=== PATIENT | female | born 1975 | race Caucasian/White ===

== ENCOUNTER 2017-01-27 08:41 | Day surgery (SDC) | payer BC ==
[~2017-01-27 08:41] MED LIST: CITALOPRAM HYDR40 MG PO; DICYCLOMINE HCL20 MG PO; FLONASE 50 MCG16 GM; HYDROCHLOROTH12.5 M1 PO; IBUPROFEN800 MG PO; OMEPRAZOLE20 MG PO
--- NOTE | 2017-01-27 10:27 | Operative Note ---
Colonoscopy ([facility]) Procedure date: 01/27/17 Date of : 71 Procedure:Colonoscopy Colonoscopy with cold snare polypectomy Indications: Mrs. Brambila is a 41-year-old female with indigestion and burning chest discomfort. She has some dysphagia. She reports epigastric soreness, nausea, regurgitation and reflux. She has some early satiety. She also has chronic constipation. She has had to take 3-4 laxatives daily. She is taking Linzess which has helped. She did not achieve relief with MiraLAX or Metamucil. The patient reports no rectal bleeding or melena. She has had no weight loss. She reports no family history of gastric or colon cancer. She did have a colonoscopy in [address] Brijesh Saxena and was found to have a polyp at the hepatic flexure. The patient is on omeprazole 20 mg daily. She is here for diagnostic panendoscopy. Performing Provider: Michael Jolly MD Referrring Provider: James Jaimes M.D. Sedation: Fentanyl 200 mg IV/Versed 11 mg IV (combined sedation for upper endoscopy and colonoscopy) Procedure: Prior to the procedure, a history and physical exam was performed, and patient medications and allergies were reviewed. The risks and benefits of the procedure and the sedation options and risks were discussed with the patient. All questions were answered and informed consent was obtained. Patient identification and proposed procedure were verified by the physician and the nurse. The patient was placed in a left lateral decubitus position. Throughout the procedure, the patient's blood pressure, pulse, and oxygen saturations were monitored continuously. Findings: On digital rectal examination there was normal rectal tone. There were no external hemorrhoids. The colonoscope was introduced through the anal canal to the rectum and advanced to the cecum. The ileocecal valve and appendiceal orifice were identified. The scope was advanced a short distance into the ileum which appeared grossly normal. The scope was then withdrawn into the colon. The cecum, ascending, transverse, descending, sigmoid and rectum were grossly normal. There was a single 7 mm polyp in the descending colon removed via cold snare polypectomy. There were no other mucosal abnormalities identified. Upon retroflexion within the rectum there were grade 1 internal hemorrhoids. Impressions: 1. Descending colon polyp 2. Grade 1 internal hemorrhoids Recommendations: I will follow up polyp histology and recommend repeat screening/surveillance colonoscopy again in 5-10 years based upon the histology. I would continue Linzess plus sennaprompt. I will discuss additional treatment for motility and visceral sensitivity. I will follow up the upper endoscopy biopsies. Complications: None EBL (ml): 0 at [id number]
--- NOTE | 2017-01-27 10:29 | Operative Note ---
Upper GI Endoscopy Procedure date: 01/27/17 Date of : 71 Procedure:Upper GI Endoscopy Esophagogastroduodenoscopy with cold biopsies and TTS balloon dilation Indications: Mrs. Brambila is a 41-year-old female with indigestion and burning chest discomfort. She has some dysphagia. She reports epigastric soreness, nausea, regurgitation and reflux. She has some early satiety. She also has chronic constipation. She has had to take 3-4 laxatives daily. She is taking Linzess which has helped. She did not achieve relief with MiraLAX or Metamucil. The patient reports no rectal bleeding or melena. She has had no weight loss. She reports no family history of gastric or colon cancer. She did have a colonoscopy in [address] Brijesh Saxena and was found to have a polyp at the hepatic flexure. The patient is on omeprazole 20 mg daily. She is here for diagnostic panendoscopy. Performing Provider: Michael Jolly MD Referring Provider: James Jaimes M.D. Sedation: Fentanyl 200 mg IV/Versed 9 mg IV Procedure: Prior to the procedure, a history and physical exam was performed, and patients medications and allergies were reviewed. The risks and benefits of the procedure and the sedation options and risks were discussed with the patient. All questions were answered and informed consent was obtained. The patient was brought to the procedure room. Patient identification and proposed procedure were verified by the physician and the nurse. The patient was placed in a left lateral decubitus position and the scope was passed under direct vision. Throughout the procedure, the patient's blood pressure, pulse, and oxygen saturations were monitored continuously. The endoscope was introduced through the mouth, and advanced to the second part of duodenum. The upper GI endoscopy was accomplished without difficulty. The patient tolerated the procedure well. Findings: The scope was passed directly into the upper esophagus and advanced to the third portion of the duodenum. The post bulbar duodenum and duodenal bulb were normal with normal mucosa and conniventes. The scope was withdrawn through a normal duodenal bulb and pylorus into the stomach. There was mild pylorospasm. There was linear erythema of the antrum and body with some bile reflux. The remainder of the antrum, body and fundus of the stomach were grossly normal. Upon retroflexion there was no hiatal hernia. 2 biopsies were taken in the antrum and along the lesser curvature for histology. The scope was then withdrawn into the esophagus. There was evidence of grade B to C reflux esophagitis with distal Schatzki's ring. This was dilated to 60 Welsh/20 mm with a TTS hydrostatic balloon. There was no evidence of Dean's esophagus. There were tertiary contractions and evidence of moderate esophageal dysmotility. Immediate complications: None EBL (ml): 0 Impression: 1. Grade B to C reflux esophagitis with esophageal dysmotility/esophageal dyskinesia and distal Schatzki's ring dilated to 20 mm 2. 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 We will discuss additional treatment options including promotility therapy, treatment for visceral sensitivity and additional treatment for her constipation/obstipation. I will follow up the biopsies and proceed with diagnostic colonoscopy. at [id number]
[2017-01-27 14:04] VITALS: BP 143/89
== END 2017-01-27 11:30 | disposition home or self-care (01) ==
LOC: SDC 08:41
PROVIDERS: Internal Medicine Gastroenterology
PROC: 0DBM8ZX Excision of Descending Colon, Via Natural or Artificial Opening Endoscopic, Diagnostic (ICD-10-PCS; principal; 2017-01-27 09:30)
DX: K63.5 Polyp of colon (principal); K64.0 First degree hemorrhoids
CPT/HCPCS: C1726